=== PATIENT | male | born 1980 | race Caucasian/White ===

== ENCOUNTER 2019-11-09 08:48 | Emergency (ER) | payer SELFPAY ==
[~2019-11-09] VITALS: Ht 182.9 cm; Wt 86.2 kg
[2019-11-09 08:57] VITALS: BP 128/77
--- NOTE | 2019-11-09 08:59 | NUR ---
PT. AMBULATED TO BED 4
--- NOTE | 2019-11-09 09:24 | NUR ---
PT REPORTS PAIN 8/10 IN SEVERITY TO AREA
--- NOTE | 2019-11-09 09:24 | NUR ---
C/O SORE TO PENIS X 1 WEEK. PT DENIES INJURY. STATES ONE SEXUAL PARTNER (FEMALE). UNKNOWN EXPOSURE TO STDS. DENIES DISCHARGE OR URINARY BURNING. VS STABLE. PT ALERT AND AWAKE. AMBULATORY HX DENIES
[2019-11-09] MEDS ORDERED: PENICILLIN G BENZATHINE L-A 1.2 MU/2 ML SYR IM ONE (09:25)
--- NOTE | 2019-11-09 09:38 | NUR ---
BICILLIN ADMINISTERED IM TO BILATERAL GLUTEAL BY JUAN C K[place]IA AND JAZZ [place]
[2019-11-09 10:37] VITALS: BP 128/77
[2019-11-09 11:32] LABS: RAPID PLASMA REAGIN REACTIVE (Non Reactiv)
[2019-11-11 06:07] LABS: CHLAMYDIA TRACHOMATIS AMP DNA Negative (Negative)
== END 2019-11-09 10:36 | disposition home or self-care (01) ==
LOC: MED 08:48
DX: N48.5 Ulcer of penis (principal); F17.200 Nicotine dependence, unspecified, uncomplicated; Z71.6 Tobacco abuse counseling
CPT/HCPCS: 36415; 86592; 86703; 87491; 96372; 99283; J0561